=== PATIENT | male | born 1980 | race Two or more races ===

== ENCOUNTER 2020-10-12 06:03 | Day surgery (SDC) | payer OTHER ==
[2020-10-09 11:32] VITALS: BMI 36.8
[2020-10-12] MEDS ORDERED: ROPIVACAINE HCL 0.5% 30ML VIAL ONE (07:09)
[2020-10-12] MEDS ORDERED: PROPOFOL 20 ML ONE (07:24)
[2020-10-12] MEDS ORDERED: MIDAZOLAM HCL 2 MG/2 ML SINGLE DOSE VIAL ONE (07:24)
[2020-10-12] MEDS ORDERED: SUCCINYLCHOLINE CHLORIDE 200 MG/10 ML SYRINGE ONE (07:24)
[2020-10-12] MEDS ORDERED: ACETAMINOPHEN 500 MG TABLET (FP) PO PRN (09:50)
[2020-10-12] MEDS ORDERED: ACETAMINOPHEN INJECTION 100 ML IVPB ONE (10:07)
[2020-10-12] MEDS ORDERED: KETOROLAC TROMETHAMINE 30 MG/1 ML VIAL IVPUSH ONE (10:12)
[2020-10-12] MEDS ORDERED: ACETAMINOPHEN 1000 MG/100 ML VIAL (NON FORMULARY) IVPB ONE ×2 (10:20→11:08)
[2020-10-12 11:03] VITALS: TEMP 97.9
[2020-10-12] MEDS ORDERED: oxyCODONE HCL 5 MG TABLET PO PRN (11:07)
[2020-10-12 12:04] VITALS: BP 119/76; PULSE 77
== END 2020-10-12 12:04 | disposition home or self-care (01) ==
LOC: FASU 06:03
PROVIDERS: ATTEND Orthopaedic Surgery
PROC: 0RBM4ZZ Excision of Left Elbow Joint, Percutaneous Endoscopic Approach (ICD-10-PCS; 2020-10-12)
PROC: 0RCM4ZZ Extirpation of Matter from Left Elbow Joint, Percutaneous Endoscopic Approach (ICD-10-PCS; principal; 2020-10-12 08:16)
DX: M24.522 Contracture, left elbow (principal); M65.822 Other synovitis and tenosynovitis, left upper arm; M24.022 Loose body in left elbow; M94.222 Chondromalacia, left elbow; S53.432A Radial collateral ligament sprain of left elbow, initial encounter; S53.442A Ulnar collateral ligament sprain of left elbow, initial encounter; X58.XXXA Exposure to other specified factors, initial encounter; Y93.9 Activity, unspecified; Y92.9 Unspecified place or not applicable; Y99.9 Unspecified external cause status
CPT/HCPCS: 88304-TC; 94760; J0131